=== PATIENT | male | born 1980 | race Hispanic/Latino ===

== ENCOUNTER 2019-12-15 04:15 | Emergency (ER) | payer SELFPAY ==
[2019-12-15 06:04] LABS: Basophils % (Auto) 0.4 % (0.0-1.8); Eosinophils # (Auto) 0.1 K/mm3 (0.0-0.4); Eosinophils % (Auto) 0.7 % (0.0-4.3); Hemoglobin 8.3 gm/dl (11.8-15.2); Lymphocytes # (Auto) 1.9 K/mm3 (1.2-5.4); Lymphocytes % (Auto) 22.7 % (13.4-35.0); Mean Corpuscular HGB Conc 33 % (32-34); Mean Corpuscular Volume 83 fl (84-94); Monocytes # (Auto) 0.5 K/mm3 (0.0-0.8); Monocytes % (Auto) 5.9 % (0.0-7.3); Platelet Count 273 K/mm3 (140-440); Red Cell Distribution Width 18.6 % (13.2-15.2)
[2019-12-15 06:27] LABS: BUN/Creatinine Ratio 10; Blood Urea Nitrogen 8 mg/dL (9-20); Calcium 8.8 mg/dL (8.4-10.2); Hemolysis Index 6
[2019-12-15] MEDS ORDERED: SODIUM CHLORIDE 0.9% 1000 ML 1,000 ML IV ONE ×2 (06:31→06:52)
[2019-12-15] MEDS ORDERED: SODIUM CHLORIDE 0.9% 500 ML 500 ML IV ONE (06:34)
--- NOTE | 2019-12-15 06:35 | XRay Report ---
FLAT AND UPRIGHT VIEWS OF THE ABDOMEN. INDICATION: R/O foreign body. COMPARISON: No relevant prior imaging study available. FINDINGS: Constipation is noted. No free air is identified. Within the left lower quadrant there is an 8 mm linear foreign body, this could be within the subcuta neous tissues. IMPRESSION: 1. 8 mm linear density projecting over the left lower quadrant subcutaneous tissue. Correlate clinica lly. Signer Name: Oziel Samaniego MD Signed: 12/15/2019 6:30 AM Workstation Name: [id number]
--- NOTE | 2019-12-15 06:49 | XRay Report ---
CHEST 1 VIEW INDICATION: hypertension. COMPARISON: None. FINDINGS: Support devices: None. Heart: Normal. Lungs/Pleura: No acute pulmonary or pleural findings. IMPRESSION: 1. No acute findings. Signer Name: Oziel Samaniego MD Signed: 12/15/2019 6:44 AM Workstation Name: [id number]
[2019-12-15] MEDS ORDERED: PIPERACILLIN/TAZOBACTAM 3.375 3.375 GM/50 ML BAG IV ONE (06:52)
[2019-12-15 07:18] VITALS: BP 140/90
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
== END 2019-12-15 08:08 | disposition other institution (70) ==
LOC: ED 04:15
DX: T07.XXXA Unspecified multiple injuries, initial encounter (principal); U07.1 COVID-19; F17.200 Nicotine dependence, unspecified, uncomplicated; Z98.890 Other specified postprocedural states; X58.XXXA Exposure to other specified factors, initial encounter; Y93.89 Activity, other specified; Y92.89 Other specified places as the place of occurrence of the external cause; Y99.8 Other external cause status
CPT/HCPCS: 36415; 71045; 74019; 74177; 80048; 83690; 85025; 86850; 86900; 86901; 86920; 96365; 96366; 99285; J2543; J7030; J7040; Q9967; 80320; G0480

== ENCOUNTER 2019-12-31 00:02 | Emergency (ER) | payer OTHER, SELFPAY ==
[2019-12-31] MEDS ORDERED: AMOXICILLIN/K CLAV 875/125MG TAB PO ONE (02:53)
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
[2019-12-31 03:19] VITALS: BP 125/79
== END 2019-12-31 05:14 ==
LOC: ED 00:02
DX: S51.851A Open bite of right forearm, initial encounter (principal); T14.8XXA Other injury of unspecified body region, initial encounter; F32.9 Major depressive disorder, single episode, unspecified; Z98.890 Other specified postprocedural states; Z79.899 Other long term (current) drug therapy; Z91.013 Allergy to seafood; Z91.041 Radiographic dye allergy status; Z72.89 Other problems related to lifestyle; W50.3XXA Accidental bite by another person, initial encounter; Y93.89 Activity, other specified; Y92.89 Other specified places as the place of occurrence of the external cause; Y99.8 Other external cause status
CPT/HCPCS: 99283

== ENCOUNTER 2020-02-28 20:15 | Emergency (ER) | payer OTHER ==
[2020-02-28 20:28] VITALS: BP 114/76
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
[2020-02-29] MEDS ORDERED: IBUPROFEN 600 MG TAB PO ONE (05:33)
[2020-02-29] MEDS ORDERED: ONDANSETRON 4 MG ODT TAB PO ONE (05:33)
[2020-02-29] MEDS ORDERED: cephALEXin 500 MG CAP PO ONE (05:33)
[2020-02-29] MEDS ORDERED: HYDROcodone/ACETAMINOPHEN 5-325 MG TAB PO ONE (05:33)
== END 2020-02-29 05:52 | disposition home or self-care (01) ==
LOC: ED 20:15
DX: S51.812A Laceration without foreign body of left forearm, initial encounter (principal); S61.412A Laceration without foreign body of left hand, initial encounter; F32.9 Major depressive disorder, single episode, unspecified; Z98.890 Other specified postprocedural states; Z79.1 Long term (current) use of non-steroidal anti-inflammatories (NSAID); Z79.899 Other long term (current) drug therapy; Z91.013 Allergy to seafood; Z88.8 Allergy status to other drugs, medicaments and biological substances; W45.8XXA Other foreign body or object entering through skin, initial encounter; Y93.89 Activity, other specified; Y92.89 Other specified places as the place of occurrence of the external cause; Y99.8 Other external cause status
CPT/HCPCS: Q0162